=== PATIENT | male | born 1980 | race Caucasian/White ===

== ENCOUNTER → 2020-08-26 15:20 | Outpatient (CLI) | payer BC, SELFPAY ==
--- NOTE | ~2020-08-26 | XR_ITS ---
XR pelvis 1-2V DATE: 08/26/2020 16:17 INDICATION: Low back pain, right sciatica TECHNIQUE: AP pelvis COMPARISON: None FINDINGS: No pelvic fracture or bone destruction. The pubic symphysis and sacroiliac joints are intac t. Hip joint spaces are symmetric and well preserved. IMPRESSION: Negative Reviewed, dictated and finalized at location B. FFEUR AIRPORT LIMOUSINE IMPRESSION: Negative
--- NOTE | ~2020-08-26 | XR_ITS ---
XR lumbar spine 2-3V DATE: 08/26/2020 16:17 INDICATION: Low back pain and right-sided sciatica TECHNIQUE: AP, lateral, coned lateral lumbosacral views COMPARISON: None FINDINGS: No fracture or spondylolisthesis is evident. There is mild levoscoliosis of the thoracolumb ar spine. The included lower thoracic and lumbar pedicles are intact. Lumbar and lumbosacral interspa winter are well preserved. Primary mediastinal stenosis is not excluded. Recommend clinical correlation, with CT or MR imaging i f necessary. The sacral iliac joints appear normal. IMPRESSION: Mild levoscoliosis of the thoracolumbar spine Cannot exclude lumbar spinal stenosis; recommend clinical correlation, CT or MR evaluation as clinica lly indicated Reviewed, dictated and finalized at location B. T PROTECTIVE CASEWORKER IMPRESSION: Mild levoscoliosis of the thoracolumbar spine Cannot exclude lumbar spinal stenosis; recommend clinical correlation, CT or MR evaluation as clinically indicated
--- NOTE | ~2020-08-26 | XR_ITS ---
XR sacrum coccyx min 2V DATE: 08/26/2020 16:17 INDICATION: Lumbago, right-sided sciatica TECHNIQUE: AP, angled AP and lateral views COMPARISON: None FINDINGS: The pubic symphysis and sacroiliac joints appear normal. No sacral fracture or bone destruc tion is evident. The coccyx appears intact. Lower lumbar and lumbosacral interspaces are well preserv ed. IMPRESSION: Negative Reviewed, dictated and finalized at location B. 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
== END ==
PROVIDERS: PCP Emergency Medicine; Visit Provider Emergency Medicine
DX: M54.41 Lumbago with sciatica, right side (principal)
CPT/HCPCS: 72100; 72170; 72220

== ENCOUNTER → 2021-12-02 07:34 | Outpatient (CLI) | payer BC, SELFPAY ==
--- NOTE | ~2021-12-02 | US_ITS ---
EXAMINATION: US abdomen complete DATE: 12/02/2021 08:52 INDICATION: Disorder of bilirubin metabolism. Hyperbilirubinemia. TECHNIQUE: Multiple grayscale and Doppler ultrasound images of the abdomen were obtained. COMPARISON: None FINDINGS: The visualized portions of the head, body, and tail of the pancreas are normal. Abdominal a kennedy is normal in caliber. Inferior vena cava is normal. The liver is normal without focal lesion. No liver surface nodularity. There is normal flow in main portal vein. The gallbladder is normal in siz e. No gallstones or gallbladder wall thickening. There was no sonographic [place] sign. The common carl t is normal and measures 3 mm. The kidneys are normal in size. There is a 1.5 cm cyst with septations in right kidney. There is an 8.2 cm hyperechoic mass in the spleen. IMPRESSION: 1. 8.2 cm splenic mass, which may be benign or malignant. Abdomen MRI without and with contrast is re commended. 2. 1.5 cm cystic mass in right kidney, probably benign. Abdomen MRI without and with contrast is dave mmended. Reviewed, dictated and finalized at location A. IMPRESSION: 1. 8.2 cm splenic mass, which may be benign or malignant. Abdomen MRI without a nd with contrast is recommended. 2. 1.5 cm cystic mass in right kidney, probably benign. Abdomen MRI without and with contrast is recommended.
--- NOTE | ~2021-12-02 | XR_ITS ---
EXAMINATION: XR chest 2V DATE: 12/02/2021 08:33 INDICATION: Cough TECHNIQUE: PA and lateral views of the chest were obtained. COMPARISON: None FINDINGS: The lungs are clear with no focal airspace opacities, pulmonary edema, pleural effusion or pneumothor ax. The cardiomediastinal silhouette is normal. Mild thoracic spondylosis. IMPRESSION: 1. No acute cardiopulmonary disease. Reviewed, dictated and finalized at location B.
== END ==
PROVIDERS: PCP Emergency Medicine; Visit Provider Emergency Medicine
DX: R05.9 Cough, unspecified (principal); E88.9 Metabolic disorder, unspecified; E80.7 Disorder of bilirubin metabolism, unspecified; R16.1 Splenomegaly, not elsewhere classified; N28.1 Cyst of kidney, acquired; M47.814 Spondylosis without myelopathy or radiculopathy, thoracic region
CPT/HCPCS: 71046; 76700

== ENCOUNTER → 2022-01-03 13:24 | Outpatient (CLI) | payer BC, SELFPAY ==
--- NOTE | ~2022-01-03 | MR_ITS ---
EXAMINATION: MR abdomen wo/w con INDICATION: Masses of the spleen and right kidney. TECHNIQUE: Coronal SSFSE ARC, WATER:coronal LAVA-FLEX, Coronal 2D FIESTA FatSat, Axial SSFSE BH ARC, Axial 3D DualEcho BH, Axial SSFSE-IR, Axial DWI b=500, Axial 2D FIESTA FatSat, pre and dynamic postco ntrast Axial LAVA ARC, postcontrast Coronal In and Opposed phase LAVA FLEX COMPARISON: Ultrasound, 12/02/2021 CONTRAST: Multihance, 18 cc FINDINGS: There is a 3 mm cyst in the right hepatic lobe. The liver is otherwise unremarkable. The pa ncreas, gallbladder, and adrenal glands are normal. There is an 8.1 x 6.9 cm mass of the spleen. The mass is T1 isointense to the spleen at the periphery and T1 hypointense and its central portion. The mass mildly T2 hypointense relative to the spleen throughout much of the mass. There is slow, progres sive peripheral enhancement in the mass with absent enhancement centrally. There is a 1.7 cm cyst of the right kidney corresponding to the indeterminate lesion on CT scan. Also seen is a 9 mm cyst of th e left kidney. There are no pathologically enlarged abdominal lymph nodes. No dilated loops of bowel are present. IMPRESSION: 1. Indeterminate splenic lesion without classically benign features with differential including angio sarcoma and hemangioendothelioma. Biopsy is recommended. 2. Benign cysts of the kidneys. Reviewed, dictated and finalized at location A. IMPRESSION: 1. Indeterminate splenic lesion without classically benign features with differ ential including angiosarcoma and hemangioendothelioma. Biopsy is recommended. 2. Benign cysts of the kidneys.
[2022-01-03 14:20] LABS: Estimated Glomerular Filt Rate > 60
== END ==
PROVIDERS: PCP Emergency Medicine; Visit Provider Emergency Medicine
DX: D13.9 Benign neoplasm of ill-defined sites within the digestive system (principal); N28.1 Cyst of kidney, acquired; R59.0 Localized enlarged lymph nodes
CPT/HCPCS: 74183; A9577

== ENCOUNTER 2025-01-29 13:19 | Outpatient (CLI) | payer BC, SELFPAY ==
--- NOTE | ~2025-01-29 | XR_ITS ---
EXAM/ PROCEDURE: XR finger 4th LT min 2V - 01/29/2025 13:23 CDT HISTORY: 44 years old Male with L ring finger pain, swelling COMPARISON: None available TECHNIQUE: Three view(s) FINDINGS/ IMPRESSION: There are no fractures or dislocations.Joint spaces are within normal limits. Focal soft tissue swelling around the finger. Reviewed, dictated and finalized at location A.
== END 2025-01-29 13:20 | disposition home or self-care (01) ==
PROVIDERS: PCP Emergency Medicine; Visit Provider Emergency Medicine
DX: M79.89 Other specified soft tissue disorders (principal); M79.645 Pain in left finger(s)
CPT/HCPCS: 73140